=== PATIENT | male | born 1955 | race Caucasian/White ===

== ENCOUNTER 2016-09-20 08:04 | Day surgery (SDC) | payer OTHER ==
--- NOTE | 2016-08-22 21:37 | HP ---
Chief Complaint - Chief Complaint Date of Service: 08/22/16 Chief Complaint: need a colonoscopy History of Present Illness: 60 year old male who needs a screening colonoscopy. Last one was in 2002. Normal as far as he knows.No family history of colon cancers. No history of crohn's or UC. No changes in bowels or blood in his stools. - Patient's Past Medical History Patient History - Medical: Other - eczema, glaucoma, wart left foot. Patient History - Cardiac/Respiratory: Hypertension, Hyperlipidemia Patient History - Cancer: Other - squamous cell carcinoma left forearm. Patient History - Surgical Procedures: Colonoscopy, Other - tonsillectomy. - Family History Family History:: no untoward family reactions to anesthesia, no familial bleeding tendencies, no family history of clotting disorders - Family History Mother Family History - Medical: Family History - Cardiac/Respiratory: Cardiomyopathy - Social History Living Situations: spouse Abuse History: No History of abuse Psych History: No pertinent hx Smoking Status: Never smoker Alcohol Use: occasionally Drug Use: none - Immunizations Immunizations Up to Date: Yes - tetanus booster 3 days ago in the office. History of Influenza Vaccine: Yes Review Of Systems (GEN) - Review of Systems Generalized/Overall Review: Absent: Weakness, Chills, Fever, Malaise Respiratory: Absent: Cough, Shortness of Breath, Orthopnea, Stridor, Wheezing Cardiac: Absent: Chest Pain, Edema, Palpitations Abdominal: Absent: Nausea, Vomiting, Abdominal Pain, Constipation, Diarrhea, Bright blood from rectum Genitourinary: Present: Nocturia. Absent: Burning, Frequency Musculoskeletal: Present: Joint Pain, Joint Swelling, Muscle Pain. Absent: Back Pain Neurological: Absent: Headache, Anxiety, Depressed, Emotional Problems Skin: Absent: Dryness, Lesions, Lumps Immunizations: IMMUNIZATION HX Immunizations Up to Date Yes: tetanus booster 3 days ago in the office. Allergies/Adverse Reactions: Allergies Allergy/AdvReac Type Severity Reaction Status Date / Time No Known Allergies Allergy Verified 08/26/14 11:06 Home Medications: HOME MEDICATIONS Lovastatin 60 mg PO HS 08/26/14 [Last Taken 08/26/14 11:00] Metoprolol Succinate [Toprol Xl] 100 mg PO DAILY 08/26/14 [Last Taken 08/25/14 22:00] [place]-3 Acid Ethyl Esters [Lovaza] 2 gm PO BID 08/26/14 [Last Taken 08/25/14 22: 00] Acetaminophen [Tylenol] 650 mg PO QID PRN #0 tablet 08/29/14 [Last Taken Unknown ] Exam - Exam Vital Signs: Vital Signs - Last Taken Temp 36.8 C L 08/22/16 Pulse 75 Resp BP 131/75 08/22/16 Pulse Ox HT 6'3 Wt 260# Constitutional: Present: Alert, Oriented x3, Cooperative, Well developed, Well nourished, Overweight ENT Exam: Present: normal ENT inspection Respiratory: Present: lungs clear, normal breath sounds, no respiratory distress Cardiovascular/Chest: Present: normal peripheral pulses, regular rate, rhythm, no edema, systolic murmur Abdomen: Present: Normal bowel sounds, soft, nontender, nondistended /Rectal: Present: Exam deferred Extremity: Present: normal range of motion, non-tender, normal inspection Skin Exam: Present: normal color, warm/dry Neurologic: Present: alert, oriented x 3 Appearance: Present: appropriate insight, neat, no memory impairment Eye contact: Present: cooperative, good eye contact, normal speech Thoughts: Present: normal thought pattern, no apparent hallucination Assessment/Plan - Narrative Narrative: [facility] discussed for a colonoscopy with possible biopsy and or polypectomy. SUPRCARI discussed. He would like to do it on a Friday. - Assessment/Plan (1) Screening for colon cancer Problem: Acute (2) Hyperlipidemia Problem: Chronic (3) Hypertension Problem: Chronic
[~2016-09-20 08:04] MED LIST: RINGERS SOLUTION,LACTATED 1,000 ML IV PRN
[2016-09-20] MEDS ORDERED: RINGERS SOLUTION,LACTATED 1,000 ML IV PRN (09:18)
--- NOTE | 2016-09-20 09:18 | OR ---
Operative Report - Dictated Report Narrative: DATE OF PROCEDURE: 09/20/2016 PREOPERATIVE DIAGNOSIS: #1 Screening colonoscopy POSTOPERATIVE DIAGNOSIS: #1 Screening colonoscopy OPERATION: Colonoscopy SURGEON: Sushil Weeks M.D. [facility] ANESTHESIA : Herrera Brown CRNA sedation INDICATIONS: This is 60 year old male who presents for a screening colonoscopy. I have discussed the risks, benefits, indications, and contraindications for colonoscopy with the possibility of biopsy and/or polypectomy. He understands, agrees, and wishes to proceed. He has undergone a SUPREP and has tolerated it well. PROCEDURE: The patient was brought to the operating theater and placed into the left lateral decubitus position. The patient underwent sedation per anesthesia , and a digital rectal exam was performed. This was noted to be unremarkable. The patient was noted to have no internal or external hemorrhoids. The Olympus video colonoscope was introduced and advanced into the rectum. The rectum was normal in appearance. The scope was then advanced through the sigmoid, where no diverticular disease was noted. The scope was then advanced to the cecum using standard reduction techniques. The appendiceal orifice was noted. The ileocecal valve was noted. The prep appeared to be excellent with a [place] prep score of 9. The scope was withdrawn slowly as the ascending, transverse, descending, and sigmoid colon were examined in a circumferential fashion. The scope was brought back into the rectum where it was retroflexed in the lower rectum was examined. The air was decompressed, and the scope was then removed. Withdrawal time was 5 minutes. POSTOPERATIVE CONDITION: The patient was awakened and taken to the ambulatory surgery center in good condition. No complications were encountered. FINDINGS: Negative colonoscopy Specimens: None EBL: 0 The findings were discussed with the patient and their family. I recommend a follow-up colonoscopy in 10 years for screening purposes.
[2016-09-20 10:31] VITALS: BP 126/81
== END 2016-09-20 08:05 | disposition home or self-care (01) ==
LOC: AMB 08:04
PROVIDERS: ATTEND Surgery
PROC: 0DJD8ZZ Inspection of Lower Intestinal Tract, Via Natural or Artificial Opening Endoscopic (ICD-10-PCS; principal; 2016-09-20 09:05)
DX: Z12.11 Encounter for screening for malignant neoplasm of colon (principal); I10 Essential (primary) hypertension; E78.5 Hyperlipidemia, unspecified; Z68.32 Body mass index [BMI] 32.0-32.9, adult